=== PATIENT | female | born 2000 | race Caucasian/White ===

== ENCOUNTER 2018-01-18 01:35 | Emergency (ER) | payer BC ==
[2018-01-18 01:53] VITALS: BP 126/80; PULSE 73; TEMP 98.3; BMI 21.7
[2018-01-18] MEDS ORDERED: NAPROXEN 500 MG TABLET (FP) PO ONE (02:05)
[2018-01-18] MEDS ORDERED: NAPROXEN 500 MG TABLET (FP) ONE (02:08)
[2018-01-18 02:17] LABS: BASO % 0.5 % (0-2.0); EOS % 1.1 % (0-4.5); HEMATOCRIT 38.6 % (32.4-45.2); HEMOGLOBIN 13.2 GM/dL (10.7-15.3); MCH 29.4 pg (25.7-33.7); MCHC 34.2 g/dl (32.0-36.0); MEAN CELL VOLUME 85.9 fl (80-96); MEAN PLT VOLUME 8.9 fl (7.5-11.1); MONO % 7.3 % (3.8-10.2); NEUT % 63.1 % (42.8-82.8); PLATELET COUNT 309 K/MM3 (134-434); RBC 4.49 M/mm3 (3.60-5.2); RDW 14.2 % (11.6-15.6); WHITE BLOOD COUNT 11.6 K/mm3 (4.0-10.0)
[2018-01-18 02:20] LABS: URINE APPEARANCE SLCLOUDY; URINE BILIRUBIN NEGATIVE (NEGATIVE); URINE BLOOD NEGATIVE (NEGATIVE); URINE COLOR LTYELLOW; URINE GLUCOSE (UA) NEGATIVE (NEGATIVE); URINE KETONE NEGATIVE (NEGATIVE); URINE NITRITE NEGATIVE (NEGATIVE); URINE PROTEIN NEGATIVE (NEGATIVE); URINE UROBILINOGEN NEGATIVE mg/dL (0.2-1.0)
[2018-01-18 02:21] LABS: HCG,QUALITATIVE URINE NEGATIVE
[2018-01-18 02:27] LABS: URINE LEUK ESTERASE 1+ (NEGATIVE)
[2018-01-18 02:28] LABS: EPI CELLS FEW /HPF (FEW); URINE BACTERIA RARE /hpf (NONE SEEN); URINE HYALINE CAST 4 /lpf; URINE MUCUS RARE
[2018-01-18 02:54] LABS: ALBUMIN 3.9 g/dl (3.4-5.0); ALK PHOS 72 U/L (45-117); ANION GAP 10 (8-16); BILIRUBIN,TOTAL 0.3 mg/dL (0.2-1.0); BLOOD UREA NITROGEN 15 mg/dL (7-18); CALCIUM 8.9 mg/dL (8.5-10.1); CHLORIDE 104 mmol/L (98-107); CO2 25 mmol/L (21-32); CREATININE 0.5 mg/dL (0.55-1.02); GLUCOSE,RANDOM 88 mg/dL (74-106); POTASSIUM 4.1 mmol/L (3.5-5.1); SGOT/AST 14 U/L (15-37); SGPT/ALT 18 U/L (12-78); SODIUM 139 mmol/L (136-145); TOT PROT 7.3 g/dl (6.4-8.2)
--- NOTE | 2018-01-18 03:17 | PDOC ---
History of Present Illness - General Chief Complaint: Pain Stated Complaint: ABD PAIN X3D Time Seen by Provider: 01/18/18 01:55 History Source: Patient - History of Present Illness Travel History: No Initial Comments: 01/18/18 06:28 abd pain Timing/Duration: reports: getting worse, changing over time, intermittent Quality: reports: moderate, cramping, stabbing Abdominal Pain Onset Location: reports: RUQ, epigastric, suprapubic Pain Radiation: reports: no radiation, flank Treatment Prior to Arrive: worse with: analgesics Aggravating Factors: improves with: Eating, Movement Alleviating Factors: worse with: Eating, Holding Breath Past History - Past Medical History Allergies/Adverse Reactions: Allergies Allergy/AdvReac Type Severity Reaction Status Date / Time No Known Allergies Allergy Unverified 01/18/18 01:36 Home Medications: Ambulatory Orders Famotidine [Pepcid] 20 mg PO BID #28 tablet 01/18/18 Sertraline HCl 100 mg PO QID 01/18/18 Other medical history: none known - Surgical History Abdominal Surgery: No - Suicide/Smoking/Psychosocial Hx Smoking History: Never smoked Abd/GI Specific PMHX - Complaint Specific PMHX Gall Bladder Disease: No GERD: No Review of Systems - Review of Systems Able to Perform ROS?: Yes All Other Systems: Reviewed and Negative *Physical Exam - Vital Signs Last Vital Signs Temp Pulse Resp BP Pulse Ox 98.3 F 73 16 126/80 100 01/18/18 01:40 01/18/18 01:40 01/18/18 01:40 01/18/18 01:40 01/18/18 01:40 - Physical Exam General Appearance: Yes: Nourished HEENT: positive: Normal Voice. negative: Scleral Icterus (R), Scleral Icterus ( L) Neck: negative: Tender Respiratory/Chest: positive: Lungs Clear. negative: Chest Tender Cardiovascular: positive: Regular Rhythm Gastrointestinal/Abdominal: negative: Normal Bowel Sounds Lymphatic: negative: Adenopathy Musculoskeletal: positive: Normal Inspection Extremity: positive: Normal Capillary Refill Integumentary: positive: Normal Color ED Treatment Course - LABORATORY CBC & Chemistry Diagram: 01/18/18 01:54 01/18/18 01:54 - ADDITIONAL ORDERS Additional order review: Laboratory Results 01/18/18 01/18/18 01:54 01:54 Serum , Qual Negative Urine Color Ltyellow Urine Appearance Slcloudy Urine pH 6.0 Ur Specific [place] 1.019 Urine Protein Negative Urine Glucose (UA) Negative Urine Ketones Negative Urine Blood Negative Urine Nitrite Negative Urine Bilirubin Negative Urine Urobilinogen Negative Ur Leukocyte Esterase 1+ H Urine WBC (Auto) 17 Urine RBC (Auto) 1 Ur Epithelial Cells Few Urine Bacteria Rare Hyaline Casts 4 Urine Mucus Rare Urine HCG, Qual Negative 01/18/18 01:54 RBC 4.49 MCV 85.9 MCHC 34.2 RDW 14.2 MPV 8.9 Neutrophils % 63.1 Lymphocytes % 28.0 Monocytes % 7.3 Eosinophils % 1.1 Basophils % 0.5 - Medications Given in the ED: ED Medications Discontinued Medications Generic Name Dose Route Start Last Admin Trade Name Bouchra PRN Reason Stop Dose Admin Naproxen 500 mg 01/18/18 02:05 01/18/18 02:09 Naprosyn - PO 01/18/18 02:06 500 mg ONCE ONE Administration Medical Decision Making - Medical Decision Making 01/18/18 06:33 non specific abd pain abd nt labs reviewed no relief with nsaids trial of pepcid gi fu in place *DC/Admit/Observation/Transfer Diagnosis at time of Disposition: Gastritis Qualifiers: Gastritis type: unspecified gastritis Chronicity: acute Gastritis bleeding: without bleeding Qualified Code(s): K29.00 - Acute gastritis without bleeding - Discharge Dispostion Disposition: HOME Condition at time of disposition: Stable - Prescriptions Prescriptions: Famotidine [Pepcid] 20 mg PO BID #28 tablet - Referrals - Patient Instructions Printed Discharge Instructions: DI for Gastritis - Post Discharge Activity
== END 2018-01-18 03:30 | disposition home or self-care (01) ==
LOC: FER 01:35
DX: K29.00 Acute gastritis without bleeding (principal)
CPT/HCPCS: 36415; 80053; 81003; 81015; 83690; 84703; 85025; 99281-25

== ENCOUNTER 2018-07-18 12:19 | Emergency (ER) | payer OTHER, BC ==
[2018-07-18 12:42] VITALS: BP 117/61; PULSE 80; TEMP 98.7; BMI 21.7
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
[2018-07-18] MEDS ORDERED: IBUPROFEN 400 MG TABLET (FP) PO ONE ×2 (13:16→13:18)
== END 2018-07-18 15:05 | disposition home or self-care (01) ==
LOC: FER 12:19
DX: M79.1 Myalgia (principal)
CPT/HCPCS: 73523-TC-FY; 84703; 99283-25

== ENCOUNTER 2019-12-05 00:30 | Emergency (ER) | payer BC, OTHER ==
[2019-12-05 00:37] VITALS: BP 118/77; PULSE 88; TEMP 98.5; BMI 22.0
[2019-12-05] MEDS ORDERED: KETOROLAC TROMETHAMINE 60 MG/2 ML VIAL ONE (00:42)
--- NOTE | 2019-12-05 00:45 | PDOC ---
History of Present Illness - General Chief Complaint: Headache Stated Complaint: HEADACHE Time Seen by Provider: 12/05/19 00:40 History Source: Patient Exam Limitations: No Limitations - History of Present Illness Initial Comments: 12/05/19 00:40 This is a 19-year-old female who comes in complaining of a headache on the left side of her head. Patient has a migraine history but said this does not feel like a migraine. Patient did not take anything for the headache. Patient denies any photophobia, phonophobia or fevers or neck stiffness. Allergies: as per nursing notes Past Medical History: none Social history: Lives with family. No smoking. No alcohol. No illicit drugs. Surgical history: None General: No fevers or chills, no weakness, no weight loss HEENT: No change in vision. No sore throat,. No ear pain CardioVascular: no chest discomfort. No shortness of breath Respiratory:No cough, or wheezing. Gastrointestinal: no nausea, vomiting, diarrhea or constipation, No rectal bleeding Genitourinary: No dysuria, hematuria, or frequency Musculoskeletal: No joint or muscle pain or swelling Neurologic: + headache, vertigo, dizziness or loss of consciousness Psychiatric: nor depression Skin: No rashes or easy bruising Endocrine: no increased thirst or abnormal weight change Allergic: no skin or latex allergy All other systems reviewed and normal GENERAL: The patient is awake, alert, and fully oriented, in no acute distress. HEAD: Normal with no signs of trauma. EYES: Pupils equal, round and reactive to light, extraocular movements intact, sclera anicteric, conjunctiva clear. EXTREMITIES:atraumatic, Normal range of motion, no edema. NEUROLOGICAL: Normal speech, normal gait. PSYCH: Normal mood, normal affect. SKIN: Warm, Dry, normal turgor, no rashes or lesions noted. Assessment and plan: This is a 19-year-old female with a headache. Patient given Toradol. Patient said this is not the worst headache of her life. Patient improved with Toradol and discharged home Past History - Past Medical History Allergies/Adverse Reactions: Allergies Allergy/AdvReac Type Severity Reaction Status Date / Time No Known Allergies Allergy Verified 07/18/18 12:31 Home Medications: Ambulatory Orders Sertraline HCl 100 mg PO QID 01/18/18 Ibuprofen 800 mg PO TID PRN 07/18/18 COPD: No Psychiatric Problems: Yes Other medical history: MIGRAINES - Surgical History Abdominal Surgery: No - Immunization History Immunization Up to Date: Yes - Psycho Social/Smoking Cessation Hx Smoking History: Never smoked Hx Alcohol Use: No Drug/Substance Use Hx: No Substance Use Type: None *Physical Exam - Vital Signs Last Vital Signs Temp Pulse Resp BP Pulse Ox 98.5 F 88 16 118/77 98 12/05/19 00:32 12/05/19 00:32 12/05/19 00:32 12/05/19 00:32 12/05/19 00:32 Discharge - Discharge Information Problems reviewed: Yes Clinical Impression/Diagnosis: Headache Condition: Stable Disposition: HOME - Admission No - Follow up/Referral - Patient Discharge Instructions Additional Instructions: Take Tylenol or Motrin as needed for any additional pain. Return to the emergency department immediately with ANY new, persistent or worsening symptoms. Continue any medications as previously prescribed by your physician. You should follow up with your primary doctor as soon as possible regarding today's emergency department visit. . Please make sure your doctor reviews the results of your emergency evaluation. Thank you for coming to the Emergency Department today for your care. It was a pleasure to see you today. Please note that your evaluation is INCOMPLETE until you follow-up with your doctor. - Post Discharge Activity
[2019-12-05] MEDS ORDERED: KETOROLAC TROMETHAMINE 60 MG/2 ML VIAL IM ONE (05:11)
== END 2019-12-05 00:57 | disposition home or self-care (01) ==
LOC: FER 00:30
PROC: 3E0233Z Introduction of Anti-inflammatory into Muscle, Percutaneous Approach (ICD-10-PCS; principal; 2019-12-05)
DX: R51 Headache (principal)
CPT/HCPCS: 99281-25